=== PATIENT | female | born 1970 | race Caucasian/White ===

== ENCOUNTER 2017-07-22 21:39 | Inpatient (IN) | payer BC ==
[~2017-07-22] VITALS: Ht 177.8 cm; Wt 77.1 kg
[2017-07-22] MEDS ORDERED: PROZAC10 MG ORAL (21:42)
[2017-07-22] MEDS ORDERED: Haloperidol 5mg/ml Inj IM ONE (21:45)
[2017-07-22] MEDS ORDERED: LORazepam Inj 2mg/ml 1ml IV ONE (21:45)
--- NOTE | 2017-07-22 21:58 | Emergency Room Report ---
History of Present Illness General Chief Complaint: Altered Level of Consciousness Source: Family Member Present Illness HPI This a 47-year-old female with psychiatric history of depression. She presents with chief complaint altered mental status. Daughter had to call 911 because she's been acting abnormal. Daughter said that she had left-sided weakness in the car. She had some marijuana brownie last night and today. She start hyperventilating and swelling around. Then she was slurring his speech and shaking. She is risk in a drive her to the hospital but had to extractor puller and call 911 because she was unresponsive with an intermittent thrashing about. Never happened before. Questionable focality in the left side. No suicidal thoughts or homicidal thought. No alcohol or drug use other than marijuana. Allergies: Coded Allergies: No Known Allergies (Unverified , 07/22/17) Patient History Past Medical History: see triage record, old chart reviewed, psych hx Past Surgical History: hysterectomy, other Pertinent Family History: none Social History: Denies: smoking Now: No Immunizations: other Reviewed Nursing Documentation: PMH: Agreed; PSxH: Agreed Nursing Documentation-PMH History Of Psychiatric Problem: Yes - DEPRESSION Review of Systems Eye: Denies: eye pain, blurred vision ENT: Denies: ear pain, nose congestion, throat swelling Respiratory: Denies: cough, shortness of breath Cardiovascular: Denies: chest pain, palpitations Gastrointestinal: Denies: abdominal pain, diarrhea, nausea, vomiting Musculoskeletal: Denies: back pain, joint pain Skin: Denies: rash Neurological: Reports: numbness, paresthesia; Denies: headache Endocrine: Denies: increased thirst, increased urine Hematologic/Lymphatic: Denies: easy bruising All Other Systems: negative except mentioned in HPI Physical Exam Vital Signs Date Time Temp Pulse Resp B/P (MAP) Pulse Ox O2 Delivery O2 Flow Rate FiO2 07/22/17 21:33 97.0 116 18 158/94 96 Room Air 97.0 vitals with tachycardia and high blood pressure Sp02 EP Interpretation: reviewed, normal General Appearance: no apparent distress, other - Patient goes from not talking to thrashing her arms and legs. Head: normocephalic, atraumatic Eyes: bilateral eye PERRL, bilateral eye EOMI ENT: hearing grossly normal, normal pharynx Neck: full range of motion, supple, no meningismus Respiratory: chest non-tender, lungs clear, normal breath sounds Cardiovascular #1: regular rate, rhythm, no murmur Gastrointestinal: normal bowel sounds, non tender, no mass, no organomegaly, no bruit, non-distended Musculoskeletal: back normal, normal range of motion Neurologic: grossly normal - moving all extremities to painful stimuli Psychiatric: mood/affect normal Skin: warm/dry Medical Decision Making Diagnostic Impression: Primary Impression: Altered level of consciousness ER Course Patient with an altered mental status with questionable delirium. Drug screen only showed marijuana. No evidence of ACS, PE, dissection, or CVA. She may have had a seizure or TIA since daughter reported left-sided weakness. She had no weakness here. Will admit for further monitoring and workup. I discussed case with Dr. Garrison for admission. Laboratory Tests Test 07/22/17 21:45 07/22/17 22:00 White Blood Count 11.8 K/UL (4.8-10.8) H Red Blood Count 4.68 M/UL (4.20-5.40) Hemoglobin 14.4 G/DL (12.0-16.0) Hematocrit 41.7 % (37.0-47.0) Mean Corpuscular Volume 89 FL (80-99) Mean Corpuscular Hemoglobin 30.8 PG (27.0-31.0) Mean Corpuscular Hemoglobin Concent 34.5 G/DL (32.0-36.0) Red Cell Distribution Width 11.3 % (11.6-14.8) L Platelet Count 282 K/UL (150-450) Mean Platelet Volume 7.6 FL (6.5-10.1) Neutrophils (%) (Auto) 58.8 % (45.0-75.0) Lymphocytes (%) (Auto) 33.2 % (20.0-45.0) Monocytes (%) (Auto) 6.9 % (1.0-10.0) Eosinophils (%) (Auto) 0.5 % (0.0-3.0) Basophils (%) (Auto) 0.6 % (0.0-2.0) Sodium Level 137 MMOL/L (136-145) Potassium Level 3.4 MMOL/L (3.5-5.1) L Chloride Level 100 MMOL/L (98-107) Carbon Dioxide Level 25 MMOL/L (21-32) Anion Gap 12 mmol/L (5-15) Blood Urea Nitrogen 22 mg/dL (7-18) H Creatinine 1.0 MG/DL (0.55-1.30) Estimat Glomerular Filtration Rate 59.2 mL/min (>60) Glucose Level 147 MG/DL (74-106) H Calcium Level 9.0 MG/DL (8.5-10.1) Serum Alcohol < 3 mg/dL Urine Color Pale yellow Urine Appearance Clear Urine pH 5 (4.5-8.0) Urine Specific [place] 1.025 (1.005-1.035) Urine Protein Negative (NEGATIVE) Urine Glucose (UA) Negative (NEGATIVE) Urine Ketones Negative (NEGATIVE) Urine Occult Blood Negative (NEGATIVE) Urine Nitrite Negative (NEGATIVE) Urine Bilirubin Negative (NEGATIVE) Urine Urobilinogen Normal MG/DL (0.0-1.0) Urine Leukocyte Esterase Negative (NEGATIVE) Urine RBC 0-2 /HPF (0 - 2) Urine WBC 0-2 /HPF (0 - 2) Urine Squamous Epithelial Cells Few /LPF (NONE/OCC) Urine Bacteria Few /HPF (NONE) Urine Opiates Screen Negative (NEGATIVE) Urine Barbiturates Screen Negative (NEGATIVE) Phencyclidine (PCP) Screen Negative (NEGATIVE) Urine Amphetamines Screen Negative (NEGATIVE) Urine Benzodiazepines Screen Negative (NEGATIVE) Urine Cocaine Screen Negative (NEGATIVE) Urine Marijuana (THC) Screen Positive (NEGATIVE) H Lab Results Impression labs unremarkable EKG Diagnostic Results Rate: normal Rhythm: NSR ST Segments: no acute changes Rhythm Strip Diag. Results Rhythm Strip Time: 23:01 EP Interpretation: yes Rate: 100 Rhythm: NSR, no PVC's, no ectopy CT/MRI/US Diagnostic Results CT/MRI/US Diagnostic Results : Imaging Test Ordered: CT head Impression Neg per radiologist Last Vital Signs Date Time Temp Pulse Resp B/P (MAP) Pulse Ox O2 Delivery O2 Flow Rate FiO2 07/22/17 21:33 97.0 116 18 158/94 96 Room Air 97.0 Status: improved Disposition: ADMITTED INPATIENT Condition: Serious GABY ARGUELLO M.D. Jul 22, 2017 21:58
[2017-07-22 22:01] LABS: BASOPHILS % (AUTO) 0.6 % (0.0-2.0); EOSINOPHILS % (AUTO) 0.5 % (0.0-3.0); HEMATOCRIT 41.7 % (37.0-47.0); HEMOGLOBIN 14.4 G/DL (12.0-16.0); LYMPHOCYTES % (AUTO) 33.2 % (20.0-45.0); MEAN CORPUSCULAR VOLUME 89 FL (80-99); MONOCYTES % (AUTO) 6.9 % (1.0-10.0); NEUTROPHILS % (AUTO) 58.8 % (45.0-75.0); PLATELET COUNT 282 K/UL (150-450); RED BLOOD COUNT 4.68 M/UL (4.20-5.40); RED CELL DISTRIBUTION WIDTH 11.3 % (11.6-14.8); WHITE BLOOD COUNT 11.8 K/UL (4.8-10.8)
[2017-07-22 22:13] LABS: APPEARANCE,URINE CLEAR; BILIRUBIN, URINE NEGATIVE (NEGATIVE); COLOR,URINE PALE YELLOW; GLUCOSE, URINE (UA) NEGATIVE (NEGATIVE); KETONES,URINE NEGATIVE (NEGATIVE); LEUKOCYTE ESTERASE ,URINE NEGATIVE (NEGATIVE); NITRITE,URINE NEGATIVE (NEGATIVE); PH,URINE 5 (4.5-8.0); PROTEIN,URINE NEGATIVE (NEGATIVE); UROBILINOGEN,URINE NORMAL MG/DL (0.0-1.0)
[2017-07-22 22:17] LABS: ANION GAP 12 mmol/L (5-15); BLOOD UREA NITROGEN 22 mg/dL (7-18); CARBON DIOXIDE 25 MMOL/L (21-32); CHLORIDE 100 MMOL/L (98-107); POTASSIUM 3.4 MMOL/L (3.5-5.1); SODIUM 137 MMOL/L (136-145)
[2017-07-22 22:55] VITALS: BP 125/71
--- NOTE | 2017-07-22 23:09 | Diagnostic Imaging Report ---
EXAM: CT Head Without Intravenous Contrast CLINICAL HISTORY: AMS TECHNIQUE: Axial computed tomography images of the head/brain without intravenous contrast. CTDI is 70 mGy and DLP is 1500 mGy-cm. One or more of the following dose reduction techniques were used: automated exposure control, adjustment of the mA and/or kV according to patient size, use of iterative reconstruction technique. COMPARISON: None. FINDINGS: Brain: Unremarkable. No hemorrhage. Age-appropriate white matter appearance. No CT evidence of acute infarct. Ventricles: Unremarkable. No ventriculomegaly. Bones/joints: Unremarkable. No acute fracture. Soft tissues: Unremarkable. Sinuses: Unremarkable as visualized. No acute sinusitis. Mastoid air cells: Unremarkable as visualized. No mastoid effusion. IMPRESSION: No acute intracranial process.
[2017-07-23 00:38] VITALS: BP 118/62
[2017-07-23 01:46] VITALS: BP 119/67
[2017-07-23 04:00] VITALS: BP 136/77
[2017-07-23] MEDS ORDERED: LORazepam Inj 2mg/ml 1ml IV PRN (07:45)
[2017-07-23 08:00] VITALS: BP 128/73
[2017-07-23] MEDS ORDERED: D5 1/2NS 1,000 ML IV SCH (08:00)
[2017-07-23] MEDS ORDERED: Heparin 5000 units/ml inj SUBQ SCH (09:00)
--- NOTE | 2017-07-23 10:27 | Consultation ---
History of Present Illness General Date patient seen: Jul 23, 2017 Chief Complaint: Altered Level of Consciousness Present Illness HPI 47-year-old female with history of depression presented to ER with chief complaint altered mental status. She had some marijuana brownie last night and today. Daughter had to call 911 because she's been acting abnormal. She start hyperventilating and slurring of speech and shaking. She became unresponsive with an intermittent thrashing about. . No suicidal thoughts or homicidal thought. she is totally improved and is back to her normal self now. moving all extremities. Allergies: Coded Allergies: No Known Allergies (Unverified , 07/22/17) Medication History Scheduled Fluoxetine Hcl* (Prozac*), 10 MG ORAL DAILY, (Reported) Patient History Healthcare decision maker Living will, daughter emergency contact Resuscitation status Full Code Advanced Directive on File No Past Medical/Surgical History Past Medical/Surgical History: (1) Depression Review of Systems Constitutional: Reports: weakness Psychiatric: Reports: emotional problems Physical Exam General Appearance: WD/WN Lines, tubes and drains: peripheral HEENT: normocephalic, atraumatic Neck: non-tender, normal alignment Respiratory/Chest: chest wall non-tender, lungs clear Breasts: no masses Cardiovascular/Chest: normal peripheral pulses Abdomen: normal bowel sounds Genitourinary/Rectal: normal genital exam Extremities: normal range of motion Last 24 Hour Vital Signs Date Time Temp Pulse Resp B/P (MAP) Pulse Ox O2 Delivery O2 Flow Rate FiO2 07/23/17 08:00 98.2 80 20 128/73 100 Room Air 98.2 07/23/17 04:00 98.3 88 20 136/77 97 Room Air 98.3 07/23/17 04:00 93 07/23/17 02:03 88 07/23/17 01:50 97.4 89 24 119/67 98 Room Air 97.4 07/23/17 01:46 97.4 89 24 119/67 98 Room Air 97.4 07/23/17 00:38 95 24 118/62 99 Room Air 07/22/17 22:55 97.0 102 22 125/71 96 Room Air 97.0 07/22/17 21:33 97.0 116 18 158/94 96 Room Air 97.0 Intake and Output 07/22/17 07/23/17 19:00 07:00 Output Total 1200 ml Balance -1200 ml Output Urine Total 1200 ml # Voids 3 Laboratory Tests Test 07/22/17 21:45 07/22/17 22:00 White Blood Count 11.8 K/UL (4.8-10.8) H Red Blood Count 4.68 M/UL (4.20-5.40) Hemoglobin 14.4 G/DL (12.0-16.0) Hematocrit 41.7 % (37.0-47.0) Mean Corpuscular Volume 89 FL (80-99) Mean Corpuscular Hemoglobin 30.8 PG (27.0-31.0) Mean Corpuscular Hemoglobin Concent 34.5 G/DL (32.0-36.0) Red Cell Distribution Width 11.3 % (11.6-14.8) L Platelet Count 282 K/UL (150-450) Mean Platelet Volume 7.6 FL (6.5-10.1) Neutrophils (%) (Auto) 58.8 % (45.0-75.0) Lymphocytes (%) (Auto) 33.2 % (20.0-45.0) Monocytes (%) (Auto) 6.9 % (1.0-10.0) Eosinophils (%) (Auto) 0.5 % (0.0-3.0) Basophils (%) (Auto) 0.6 % (0.0-2.0) Sodium Level 137 MMOL/L (136-145) Potassium Level 3.4 MMOL/L (3.5-5.1) L Chloride Level 100 MMOL/L (98-107) Carbon Dioxide Level 25 MMOL/L (21-32) Anion Gap 12 mmol/L (5-15) Blood Urea Nitrogen 22 mg/dL (7-18) H Creatinine 1.0 MG/DL (0.55-1.30) Estimat Glomerular Filtration Rate 59.2 mL/min (>60) Glucose Level 147 MG/DL (74-106) H Calcium Level 9.0 MG/DL (8.5-10.1) Serum Alcohol < 3 mg/dL Urine Color Pale yellow Urine Appearance Clear Urine pH 5 (4.5-8.0) Urine Specific [place] 1.025 (1.005-1.035) Urine Protein Negative (NEGATIVE) Urine Glucose (UA) Negative (NEGATIVE) Urine Ketones Negative (NEGATIVE) Urine Occult Blood Negative (NEGATIVE) Urine Nitrite Negative (NEGATIVE) Urine Bilirubin Negative (NEGATIVE) Urine Urobilinogen Normal MG/DL (0.0-1.0) Urine Leukocyte Esterase Negative (NEGATIVE) Urine RBC 0-2 /HPF (0 - 2) Urine WBC 0-2 /HPF (0 - 2) Urine Squamous Epithelial Cells Few /LPF (NONE/OCC) Urine Bacteria Few /HPF (NONE) Urine Opiates Screen Negative (NEGATIVE) Urine Barbiturates Screen Negative (NEGATIVE) Phencyclidine (PCP) Screen Negative (NEGATIVE) Urine Amphetamines Screen Negative (NEGATIVE) Urine Benzodiazepines Screen Negative (NEGATIVE) Urine Cocaine Screen Negative (NEGATIVE) Urine Marijuana (THC) Screen Positive (NEGATIVE) H Height (Feet): 5 Height (Inches): 10.00 Weight (Pounds): 170 Medications Current Medications Medications (Trade) Dose Ordered Sig/Pankaj Route PRN Reason Start Time Stop Time Status Last Admin Dose Admin Dextrose (Dextrose 50%) 25 ml PRN IV Hypoglycemia 07/23/17 08:00 08/22/17 07:59 Dextrose (Dextrose 50%) 50 ml PRN IV hypoglycemia 07/23/17 08:00 08/22/17 07:59 Dextrose/Sodium Chloride 1,000 ml @ 50 mls/hr Q20H IV 07/23/17 08:00 08/22/17 07:59 07/23/17 09:01 Heparin Sodium (Porcine) (Heparin 5000 units/ml) 5,000 units EVERY 12 HOURS SUBQ 07/23/17 09:00 08/22/17 08:59 07/23/17 09:12 Lorazepam (Ativan 2mg/ml 1ml) 0.5 mg Q4H PRN IV For Anxiety 07/23/17 07:45 07/30/17 07:44 Ondansetron HCl (Zofran) 4 mg Q6H PRN IVP Nausea & Vomiting 07/23/17 07:45 08/22/17 07:44 Assessment/Plan Problem List: (1) Drug intoxication ICD Codes: F19.929 - Other psychoactive substance use, unspecified with intoxication, unspecified SNOMED: 6207922 (2) Depression ICD Codes: F32.9 - Major depressive disorder, single episode, unspecified SNOMED: 24495367 Assessment/Plan symptomatic treatment psych evaluation. Amando Hernandez MD Jul 23, 2017 10:27
[2017-07-23 12:00] VITALS: BP 123/72
--- NOTE | 2017-07-23 15:51 | Consultation ---
Consult Note Consult Note NEUROLOGY CONSULTATION: Full note dictated # 47 y/o, RH, CF with relatively benign PH. 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 On 07/22/17 she had a Marijuana Brownie and then started to behave in an unusual manner. She was flailing around, was unsteady on her feet, was confused and disoriented and just not her usual self. Over the nest few hours she started to improve. She feels she is back to normal now. ON EXAM: Problems with math. IMPRESSION: THC intoxication that has now resolved. REC: No drugs. Stop smoking. Decrease alcohol to 3 drinks / week. Safe to go home. Red Ley M.D., M.S.P.H. RED LEY Jul 23, 2017 15:51
[2017-07-23 16:00] VITALS: BP 132/83
[2017-07-23] MEDS ORDERED: D5 1/2NS 1000ml IV ONE (16:19)
--- NOTE | 2017-07-23 18:46 | History and Physical Report ---
DATE OF ADMISSION: 07/23/2017 APPROXIMATE TIME: 9 a.m. CONSULTANTS: 1. Tarik Ley M.D. 2. Amando Hernandez M.D. 3. Madai Burdick M.D. CHIEF COMPLAINT: Altered mental status, marijuana use, and lethargy. BRIEF HISTORY: This is a 47-year-old female, who lives at home, visiting from [place] apparently tried marijuana first time in a longtime, became very lethargic and confused. The patient came to [place], diagnosed with the above, admitted to telemetry for further care. Currently, calm in bed. No complaint. No chest pain. No nausea, vomiting, or diarrhea. PAST MEDICAL HISTORY: Nothing. PAST SURGERY HISTORY: Hysterectomy. ALLERGIES: Denies. SOCIAL HISTORY: Positive smoke. Positive alcohol. Positive marijuana use. PHYSICAL EXAMINATION: GENERAL: Calm in bed, oriented x3, in no acute distress. VITAL SIGNS: Showed temperature 98 degrees, pulse 93, respirations 20, blood pressure 136/77. CARDIOVASCULAR: No murmur. LUNGS: Distant and clear. ABDOMEN: Bowel sounds positive. Nontender and nondistended. EXTREMITIES: No cyanosis, or edema. NEUROLOGIC: The patient moves all extremities, slightly weak. LABORATORY AND DIAGNOSTIC DATA: White count 11.8, otherwise CBC is normal. BMP show potassium 3.4, BUN 22, glucose 147, otherwise normal. Urinalysis is negative. Urine toxicology is positive for marijuana MEDICATION: Include heparin, lorazepam, Zofran, and Haldol. ASSESSMENT: 1. Altered mental status. 2. Drug abuse. PLAN: 1. Continue premeds. 2. Detox, dietary followup. 3. We will continue to follow the patient. 4. OT, PT and dietary evaluation, CBC and BMP in the morning. Ramon Garrison D.O. DR: ALCON JOB#: [id number] CC:
--- NOTE | 2017-07-23 20:02 | Consultation ---
DATE OF CONSULTATION: 07/23/2017 NEUROLOGY CONSULTATION CONSULTING PHYSICIAN: Tarik Ley M.D. REQUESTING PHYSICIAN: Ramon Garrison D.O. HISTORY OF PRESENT ILLNESS: The patient is a 47-year-old right-handed lady with relatively benign past history. She did have depression more than 20 years ago and she has also been told that her cholesterol has been high. On 07/22/2017, she had marijuana brownie and then started to behave in an unusual manner. She was flailing around, was unsteady on her feet, was confused and disoriented, and just not her usual self. Over the next few hours, she started to improve and at this point in time, she is back to her normal self. She denies any weakness on one side or the other, numbness on one side or the other, problems with speech, problems with language, problems with vision, problems with memory, or other neurological problems. She also denies any similar symptoms in the past. PAST HISTORY: Significant for depression numerous years ago, dyslipidemia. FAMILY HISTORY: Nothing significant. PERSONAL HISTORY: Home, she lives with her in [place]. She is visiting her daughter in [place] right now. Work, she works for the [employer]. Habits, she smokes approximately half a pack of cigarettes per day and has been doing so for quite sometime now. She consumes approximately 2 bottles of wine every week. She denies the use of any illicit drugs other than the marijuana that she consumed yesterday. MEDICATIONS: Present medications none at home, but in the emergency room, she was given aspirin 325 mg, Haldol 5 mg intramuscularly, and lorazepam 1 mg intravenously. PHYSICAL EXAMINATION: GENERAL: She is a well-developed, well-nourished, pleasant lady, lying in bed, in no acute distress. VITAL SIGNS: Pulse 66 per minute, blood pressure 123/72 mmHg, respirations 20 per minute, and temperature 97.7 degrees Fahrenheit. HEAD: Normocephalic and atraumatic. EENT: Benign. NECK: No neck rigidity was observed. MENTAL STATUS: She was awake and alert. She was oriented to person, place, and time. She was able to recall 3 out of 3 words immediately after 1 minute and after 3 minutes. She was able to remember presidents, Trump and Obama, but could not remember presidents prior to that. Her mathematical skills were impaired. Her visuospatial function was relatively good. Speech, she had no dysarthria. Language, she had no aphasia. CRANIAL NERVE II: The visual lam were intact to confrontation testing. CRANIAL NERVES III, IV, AND : External ocular movements were full and the pupils 3 mm in diameter, equal, round, regular, and reactive to light. CRANIAL NERVE V: She had normal facial sensations and the temporalis, masseters, and pterygoids function normally. CRANIAL NERVE VII: She had normal facial expressions. No facial asymmetry. CRANIAL NERVE VIII: She was able to hear well bilaterally and had no nystagmus. CRANIAL NERVE IX: The palate moved symmetrically on phonation. CRANIAL NERVE X: She had no hoarseness of voice. CRANIAL NERVE XI: The sternocleidomastoids and trapezii function normally. CRANIAL NERVE XII: The tongue was in the midline without any fasciculations or atrophy. MOTOR SYSTEM: The tone was normal in all four extremities. Examination of muscle mass revealed no focal wasting. Examination of power revealed grade 5/5 power in all muscle groups tested. SENSORY EXAMINATION: She had intact sensations to pinprick, light touch, and graphesthesia. Coordination, she performed well on [id number] and jxfr-jy-habi testing. The Romberg test was negative. Reflexes 1++ and bilaterally symmetrical at the biceps, triceps, brachioradialis, and knees, and 1+ at both ankles. The plantar responses were flexor bilaterally. Stance, she had normal stance. Gait, she had normal gait. DIAGNOSTIC IMPRESSION: 1. The patient is a 47-year-old right-handed lady, who after consuming marijuana brownie started to behave in an unusual manner. She was flailing around, was unsteady on her feet, was confused, disoriented, and quite agitated. As a result of that, she was brought into the [facility] and since then has improved significantly. 2. On neurological examination at this time, she does have mild problems with memory, mild problems with mathematical skills, but no focal or lateralizing findings. 3. The CT scan of the brain without contrast is benign. 4. Laboratory data reveal that her WBC count is minimally elevated at 11.8. Her chemistry panel is relatively benign. Her urinalysis is relatively benign, but toxicology screen is positive for tetrahydrocannabinols. 5. The patient's history and neurological examination are most compatible with toxic encephalopathy related to cannabinol use, which is now resolved. RECOMMENDATIONS: 1. The patient and her family were given an explanation of the above-mentioned findings. 2. She was told to stay away from all illicits and illicit drugs that are not prescribed to her. 3. She was encouraged to stop smoking. 4. She was also encouraged to decrease alcoholic intake to no more than 3 drinks a week. 5. At this point in time, it would be relatively safe for her to go home. Thank you for entrusting me with the care of this patient. Please do let me know if I can be of any further help. Tarik Ley M.D. DR: Stacy JOB#: [id number] CC:
--- NOTE | 2017-07-24 16:54 | Cardiology Report ---
APPROVED REPORT EKG Measurement Heart [id number] CO [id number] Normal sinus rhythm Normal ECG
== END 2017-07-23 16:20 | disposition home or self-care (01) | DRG 897 ==
LOC: EDBD 21:39 → EMR 22:00 → 2E 07-23 00:55 → EDBEDREQ 07-23 01:19 → EMR 07-23 01:50
DX: F12.929 Cannabis use, unspecified with intoxication, unspecified (principal); Z72.0 Tobacco use; F32.9 Major depressive disorder, single episode, unspecified; Z90.710 Acquired absence of both cervix and uterus
CPT/HCPCS: 36415; 70450; 80048; 80307; 80329; 81001; 85025; 93005; 99285